=== PATIENT | female | born 1960 | race Caucasian/White ===

== ENCOUNTER 2016-11-21 08:24 | Emergency (ER) | payer OTHER ==
[2016-11-21 08:36] VITALS: BMI 25.6
[2016-11-21 09:02] VITALS: BP 151/91; PULSE 92; TEMP 98.5
[2016-11-21 09:11] LABS: MCH 33.5 pg (25.7-33.7); MCHC 34.2 g/dl (32.0-36.0); MEAN CELL VOLUME 97.8 fl (80-96); MEAN PLT VOLUME 8.7 fl (7.5-11.1); PLATELET COUNT 245 K/MM3 (134-434); RDW 13.3 % (11.6-15.6); WHITE BLOOD COUNT 7.2 K/mm3 (4.0-10.0)
--- NOTE | 2016-11-21 09:11 | PDOC ---
History of Present Illness - General Chief Complaint: Respiratory Stated Complaint: CHEST PAIN S/P Time Seen by Provider: 11/21/16 08:27 - History of Present Illness Initial Comments: 11/21/16 09:06 56-year-old female with a past medical history GERD, anxiety, sleep apnea, and COPD (mild) She has a [id number] smoking history States that towards the end of October, she got the flu, (despite having the flu shot), and was sick for about a week The rest of her family was also ill at the same time, and her daughter got "walking pneumonia" She states that she did get better, However Friday morning, 4 days ago, she again developed flulike symptoms, associated with an occasional cough, and some trace sputum She also developed the onset of constant chest pain, which she describes as right periscapular pain occasionally coming around to her chest, which is worse with cough, and deep inspiration She describes the pain as constant since Friday She states that she feels slightly short of breath intermittently She denies any midsternal chest pain or substernal chest heaviness, neck jaw or arm radiation, or palpitations She denies any leg swelling She denies any estrogen supplementation She denies any palpitations She denies any recent travel She denies any leg swelling She denies any history of DVT or PE She states that she is having diffuse myalgias, and some mild nausea, but she denies any vomiting or diarrhea She denies any urinary symptoms Remainder of the review of systems is negative Past History - Past Medical History Allergies/Adverse Reactions: Allergies Allergy/AdvReac Type Severity Reaction Status Date / Time No Known Drug Allergies Allergy Verified 11/21/16 08:28 Home Medications: Ambulatory Orders Alprazolam [Xanax] 0.5 mg PO BID 01/31/12 Omeprazole 20 mg PO DAILY 01/31/12 Valsartan [Diovan] 80 mg PO DAILY 01/31/12 Anemia: No Asthma: No Cancer: No Cardiac Disorders: No CVA: No COPD: No CHF: No Dementia: No Diabetes: No GI Disorders: Yes (GERD) Disorders: No HTN: Yes Hypercholesterolemia: Yes (CURRENTLY NOT ON LIPITOR) Liver Disease: No Psychiatric Problems: (ANXIETY) Seizures: No Thyroid Disease: No - Surgical History Abdominal Surgery: No Appendectomy: No Cardiac Surgery: No Cholecystectomy: No Lung Surgery: No Neurologic Surgery: No Orthopedic Surgery: No - Psycho/Social/Smoking Cessation Hx Anxiety: Yes Suicidal Ideation: No Smoking Status: No Smoking History: Current every day smoker Have you smoked in the past 12 months: Yes Number of Cigarettes Smoked Daily: 20 Information on smoking cessation initiated: No 'Breaking Loose' booklet given: 02/14/16 Hx Alcohol Use: Yes Drug/Substance Use Hx: No Substance Use Type: Alcohol Hx Substance Use Treatment: No Review of Systems - Review of Systems Able to Perform ROS?: Yes Comments:: 11/21/16 09:09 12 point review of systems is as per history of present illness and otherwise negative *Physical Exam - Vital Signs Last Vital Signs Temp Pulse Resp BP Pulse Ox 98.5 F 92 H 20 151/91 100 11/21/16 08:29 11/21/16 08:29 11/21/16 08:29 11/21/16 08:29 11/21/16 08:29 - Physical Exam Comments: 11/21/16 09:10 Physical exam Last Vital Signs Temp Pulse Resp BP Pulse Ox 98.5 F 92 H 20 151/91 100 11/21/16 08:29 11/21/16 08:29 11/21/16 08:29 11/21/16 08:29 11/21/16 08:29 GENERAL: The patient is awake, alert, and fully oriented, and in no apparent distress. HEAD: Normal with no signs of trauma. EYES: Sclera anicteric, conjunctiva normal ENT: Moist mucous membranes. NECK: Normal range of motion, supple LUNGS: Breath sounds equal, clear to auscultation bilaterally. No wheezes, and no crackles. Very occasional mild rhonchi, which clears with cough HEART: Regular rate and rhythm, normal S1 and S2 without murmur, rub or gallop. ABDOMEN: Soft, nontender, normoactive bowel sounds. No guarding, no rebound. No masses appreciated. EXTREMITIES: Normal range of motion, no edema. No clubbing or cyanosis. No cords, erythema, or tenderness. NEUROLOGICAL: Cranial nerves II through XII grossly intact. Normal speech, normal gait. PSYCH: Normal mood, normal affect. SKIN: Warm, Dry, normal turgor, no rashes or lesions noted. ED Treatment Course - LABORATORY CBC & Chemistry Diagram: 11/21/16 08:50 11/21/16 08:50 - RADIOLOGY Radiology Studies Ordered: Category Date Time Status CHEST PA & LAT [RAD] Stat Radiology 11/21/16 08:38 Ordered Medical Decision Making - Medical Decision Making 11/21/16 09:13 EKG Normal sinus rhythm 99, normal axis Normal AV and IV conduction time Normal QTC There is poor R wave progression across the anterior precordium There is no old EKG available for comparison 11/21/16 11:29 Laboratory Results - last 24 hr 11/21/16 11/21/16 11/21/16 08:50 08:50 08:50 WBC 7.2 RBC 4.27 Hgb 14.3 Hct 41.8 MCV 97.8 H MCHC 34.2 RDW 13.3 Plt Count 245 MPV 8.7 D-Dimer Cancelled Sodium 136 Potassium 4.3 Chloride 99 Carbon Dioxide 22 Anion Gap 15 BUN 13 Creatinine 0.7 Creat Clearance w eGFR > 60 Random Glucose 98 Lactic Acid Calcium 9.5 Magnesium 1.8 Total Bilirubin 0.8 AST 24 ALT 25 Alkaline Phosphatase 62 Creatine Kinase Troponin I B-Natriuretic Peptide 72.26 Total Protein 6.9 Albumin 4.4 11/21/16 11/21/16 11/21/16 08:50 08:50 10:00 WBC RBC Hgb Hct MCV MCHC RDW Plt Count MPV D-Dimer Sodium Potassium Chloride Carbon Dioxide Anion Gap BUN Creatinine Creat Clearance w eGFR Random Glucose Lactic Acid 0.770 Calcium Magnesium Total Bilirubin AST ALT Alkaline Phosphatase Creatine Kinase Cancelled 56 Troponin I Cancelled < 0.03 L B-Natriuretic Peptide Total Protein Albumin 11/21/16 11:32 CXR PA and lat - negative Patient refused to wait any longer for d-dimer results (was re-drawn and pending ), or second set of cardiac enzymes and monitoring as per protocol Explained to the patient that we still have not ruled out a cardiac cause, or pulmonary embolism Patient absolutely refuses to stay any longer and wanted to sign out AGAINST MEDICAL ADVICE Patient has decided to leave AMA The patient had a normal mental status examination, and understands his/her condition, and the risk of leaving (include specific details), including permanent disability and/or . The patient has had an opportunity to ask questions about his/her medical condition. The patient has been informed that he/she may return for care at any time, and has been referred to his/her own physician Addendum - D dimer <200 after pt signed out AMA Pt left AMA before 6 hour 2nd troponin and monitored observation could be done *DC/Admit/Observation/Transfer Diagnosis at time of Disposition: Atypical chest pain, Influenza-like illness - Discharge Dispostion Disposition: AGAINST MEDICAL ADVICE Condition at time of disposition: Fair
[2016-11-21 10:23] LABS: ALBUMIN 4.4 g/dl (3.5-5.0); ALK PHOS 62 U/L (32-92); ANION GAP 15 (8-16); BILIRUBIN,TOTAL 0.8 mg/dl (0.2-1.0); CALCIUM 9.5 mg/dl (8.4-10.2); CO2 22 mmol/L (22-28); CREATININE 0.7 mg/dl (0.6-1.3); GLUCOSE,RANDOM 98 mg/dl (74-106); MAGNESIUM 1.8 mg/dL (1.8-2.4); SGOT/AST 24 U/L (10-42); SGPT/ALT 25 U/L (10-40); TOT PROT 6.9 g/dl (6.4-8.3)
[2016-11-21 10:51] LABS: TROPONIN I (DFP) < 0.03 ng/ml (0.03-0.50)
[2016-11-21 11:19] LABS: CPK(DFH) 56 IU/L (26-140)
--- NOTE | 2016-11-22 09:49 | EKG ---
Test Reason : Blood Pressure : / mmHG Vent. Rate : 099 BPM Atrial Rate : 099 BPM P-R Int : 130 ms QRS Dur : 070 ms QT Int : 350 ms P-R-T Axes : 065 028 033 degrees QTc Int : 449 ms NORMAL SINUS RHYTHM CANNOT RULE OUT ANTERIOR INFARCT , AGE UNDETERMINED ABNORMAL ECG NO PREVIOUS ECGS AVAILABLE Confirmed by KAYLA LAGUERRE MD ([id number]) on 11/22/2016 9:48:48 AM Referred By: BHAVESH Confirmed By:KAYLA LAGUERRE MD
== END 2016-11-21 11:30 | disposition left against medical advice (07) ==
LOC: FER 08:24
DX: J11.1 Influenza due to unidentified influenza virus with other respiratory manifestations (principal); R07.89 Other chest pain; K21.9 Gastro-esophageal reflux disease without esophagitis; J44.9 Chronic obstructive pulmonary disease, unspecified; F41.9 Anxiety disorder, unspecified; G47.30 Sleep apnea, unspecified
CPT/HCPCS: 36415; 71020-TC; 80053; 82550; 83605; 83735; 83880; 84484; 85027; 85379; 87040; 87804; 93005; 99282-25

== ENCOUNTER 2018-01-03 15:00 | Emergency (ER) | payer OTHER ==
[2018-01-03 15:25] VITALS: TEMP 99; BMI 29.6
[2018-01-03] MEDS ORDERED: SODIUM CHLORIDE 1,000 ML IV STA (15:26)
[2018-01-03 15:37] LABS: BASO % 0.4 % (0-2.0); EOS % 0.3 % (0-4.5); HEMATOCRIT 44.7 % (32.4-45.2); LYMPH % 16.7 % (8-40); MCH 33.7 pg (25.7-33.7); MCHC 33.5 g/dl (32.0-36.0); MEAN CELL VOLUME 100.6 fl (80-96); MEAN PLT VOLUME 8.6 fl (7.5-11.1); MONO % 4.8 % (3.8-10.2); NEUT % 77.8 % (42.8-82.8); PLATELET COUNT 201 K/MM3 (134-434); RBC 4.44 M/mm3 (3.60-5.2); RDW 13.2 % (11.6-15.6); WHITE BLOOD COUNT 6.1 K/mm3 (4.0-10.8)
[2018-01-03] MEDS ORDERED: LORazepam 2 MG/ML SDV VIAL ONE (15:39)
[2018-01-03 15:46] LABS: PH,URINE 6.5 (4.5-8); URINE APPEARANCE Clear; URINE BILIRUBIN Negative (NEGATIVE); URINE GLUCOSE (UA) Negative (NEGATIVE); URINE KETONE 2+ (NEGATIVE); URINE LEUK ESTERASE Negative (NEGATIVE); URINE NITRITE Negative (NEGATIVE); URINE PROTEIN Negative (NEGATIVE); URINE UROBILINOGEN 0.2 (0.2-1.0)
[2018-01-03 15:53] LABS: URINE BLOOD 1+ (NEGATIVE); URINE COLOR AMBER
[2018-01-03 16:07] VITALS: PULSE 80
--- NOTE | 2018-01-03 16:26 | PDOC ---
History of Present Illness - General History Source: Patient Exam Limitations: No Limitations - History of Present Illness Initial Comments: 01/03/18 17:14 The patient is a 57 year old female with past medical history of GERD, anxiety, sleep apnea, COPD presents with multiple complaints. Patient reports several months of having multiple symptoms including fatigue, insomnia, anxiety, intermittent weakness, dehydration, abdominal pain, chest pain, shortness of breath, hematuria, and joint pains. The patient reports that she has a positive pending review of systems. She is quite anxious and reports that life is too much and that with the stressors of her job, her boss and her family that she feels anxious. Patient is requesting IV fluids for dehydration. The patient denies any other complaints. <Sera Hernandez - Last Filed: 01/03/18 17:14> - General History Source: Patient Exam Limitations: No Limitations <Tristen Chiu - Last Filed: 01/12/18 08:32> - General Chief Complaint: Headache Stated Complaint: MULTIPLE COMPLAINTS HIGH ANXIETY Time Seen by Provider: 01/03/18 15:15 Past History <Sera Hernandez - Last Filed: 01/03/18 17:14> - Past Medical History Anemia: No Asthma: No Cancer: No Cardiac Disorders: No CVA: No COPD: Yes (EMPHYSEMA) CHF: No DVT: No Dementia: No Diabetes: No GI Disorders: Yes (GERD) Disorders: No HTN: Yes Hypercholesterolemia: Yes (CURRENTLY NOT ON LIPITOR) Liver Disease: No Psychiatric Problems: (ANXIETY) Seizures: No Thyroid Disease: No Other medical history: SLEEP APNEA, ENLARGED LIVER DEGENERATIVE DISC DISEASE IN NECK - Surgical History Abdominal Surgery: No Appendectomy: No Cardiac Surgery: No Cholecystectomy: No Lung Surgery: No Neurologic Surgery: No Orthopedic Surgery: No - Suicide/Smoking/Psychosocial Hx Smoking Status: No Smoking History: Current every day smoker Have you smoked in the past 12 months: Yes Number of Cigarettes Smoked Daily: 20 Information on smoking cessation initiated: Yes 'Breaking Loose' booklet given: 01/03/18 Hx Alcohol Use: Yes (DAILY WINE ANDS VODKA) Drug/Substance Use Hx: Yes (MARIJUANA) Substance Use Type: Alcohol Hx Substance Use Treatment: No <Tristen Chiu - Last Filed: 01/12/18 08:32> - Past Medical History Allergies/Adverse Reactions: Allergies Allergy/AdvReac Type Severity Reaction Status Date / Time No Known Drug Allergies Allergy Verified 11/21/16 08:28 Home Medications: Ambulatory Orders Alprazolam [Xanax] 1 mg PO TID 01/31/12 Omeprazole 40 mg PO DAILY 01/31/12 Valsartan [Diovan] 80 mg PO DAILY 01/31/12 Review of Systems - Review of Systems Able to Perform ROS?: Yes Comments:: 01/03/18 17:14 GENERAL/CONSTITUTIONAL: (+) anxious. No fever or chills. No weakness. HEAD, EYES, EARS, NOSE AND THROAT: No change in vision. No ear pain or discharge. No sore throat. CARDIOVASCULAR: No chest pain or shortness of breath. RESPIRATORY: No cough, wheezing, or hemoptysis. GASTROINTESTINAL: No nausea, vomiting, diarrhea or constipation. GENITOURINARY: No dysuria, frequency, or change in urination. MUSCULOSKELETAL: No joint or muscle swelling or pain. No neck or back pain. SKIN: No rash NEUROLOGIC: No headache, vertigo, loss of consciousness, or change in strength/ sensation. ENDOCRINE: No increased thirst. No abnormal weight change. HEMATOLOGIC/LYMPHATIC: No anemia, easy bleeding, or history of blood clots. ALLERGIC/IMMUNOLOGIC: No hives or skin allergy. <Sera Hernandez - Last Filed: 01/03/18 17:14> *Physical Exam - Vital Signs Last Vital Signs Temp Pulse Resp BP Pulse Ox 99 F 80 16 154/85 100 01/03/18 15:03 01/03/18 16:37 01/03/18 16:37 01/03/18 16:37 01/03/18 16:37 - Physical Exam Comments: 01/03/18 17:14 GENERAL:(+) Anxious. Awake, alert, and fully oriented. HEAD: No signs of trauma EYES: PERRLA, EOMI, sclera anicteric, conjunctiva clear ENT: Auricles normal inspection, hearing grossly normal. NECK: Normal ROM. LUNGS: Breath sounds equal, clear to auscultation bilaterally. No wheezes, and no crackles HEART: Regular rate and rhythm, normal S1 and S2, no murmurs, rubs or gallops ABDOMEN: Soft, nontender EXTREMITIES: Normal range of motion, no edema. No clubbing or cyanosis. No cords, erythema, or tenderness NEUROLOGICAL: Cranial nerves II through XII grossly intact. Normal speech, normal gait SKIN: Warm, Dry, normal turgor, no rashes or lesions noted. <Sera Hernandez - Last Filed: 01/03/18 17:14> - Vital Signs Last Vital Signs Temp Pulse Resp BP Pulse Ox 99 F 80 20 155/95 98 01/03/18 15:03 01/03/18 16:05 01/03/18 16:05 01/03/18 16:05 01/03/18 16:05 <Tristen Chiu - Last Filed: 01/12/18 08:32> Heart Score/ECG Review #1 ECG reviewed & interpreted by me at: 15:25 01/03/18 16:17 NSR 83, Q wave V1-V2, no std/adela, TWI III, normal axis, normal intervals, QTC 444 msec <Tristen Chiu - Last Filed: 01/12/18 08:32> ED Treatment Course - LABORATORY CBC & Chemistry Diagram: 01/03/18 15:33 01/03/18 15:33 - ADDITIONAL ORDERS Additional order review: Laboratory Results 01/03/18 01/03/18 01/03/18 15:40 15:33 15:33 Sodium 134 L Potassium 3.5 Chloride 98 Carbon Dioxide 24 Anion Gap 12 BUN 9 D Creatinine < 0.8 Creat Clearance w eGFR > 60 Random Glucose 130 H D Calcium 9.2 Total Bilirubin 1.2 H D AST 46 H D ALT 47 H D Alkaline Phosphatase 64 Troponin I < 0.03 Total Protein 7.1 Albumin 4.3 Urine Color Melanie Urine Appearance Clear Urine pH 6.5 Ur Specific [place] 1.010 Urine Protein Negative Urine Glucose (UA) Negative Urine Ketones 2+ H Urine Blood 1+ H Urine Nitrite Negative Urine Bilirubin Negative Urine Urobilinogen 0.2 Ur Leukocyte Esterase Negative Urine RBC 2-5 Urine WBC 0-2 Ur Epithelial Cells Few Urine Bacteria Few 01/03/18 15:33 RBC 4.44 MCV 100.6 H MCHC 33.5 RDW 13.2 MPV 8.6 Neutrophils % 77.8 Lymphocytes % 16.7 Monocytes % 4.8 Eosinophils % 0.3 Basophils % 0.4 - Medications Given in the ED: ED Medications Discontinued Medications Generic Name Dose Route Start Last Admin Trade Name Freq PRN Reason Stop Dose Admin Acetaminophen 1,000 mg 01/03/18 16:29 01/03/18 16:41 Ofirmev Injection - IVPB 01/03/18 16:30 1,000 mg ONCE ONE Administration Sodium Chloride 1,000 mls @ 1,000 mls/hr 01/03/18 15:26 01/03/18 15:42 Normal Saline - IV 01/03/18 16:25 1,000 mls/hr ASDIR STA Administration Lorazepam 2 mg 01/03/18 15:26 01/03/18 15:53 Ativan Injection - IVPUSH 01/03/18 15:27 2 mg ONCE ONE Administration <Sera Hernandez - Last Filed: 01/03/18 17:14> - LABORATORY CBC & Chemistry Diagram: 01/03/18 15:33 01/03/18 15:33 - ADDITIONAL ORDERS Additional order review: Laboratory Results 01/03/18 15:40 Urine Color Melanie Urine Appearance Clear Urine pH 6.5 Ur Specific [place] 1.010 Urine Protein Negative Urine Glucose (UA) Negative Urine Ketones 2+ H Urine Blood 1+ H Urine Nitrite Negative Urine Bilirubin Negative Urine Urobilinogen 0.2 Ur Leukocyte Esterase Negative 01/03/18 15:33 RBC 4.44 MCV 100.6 H MCHC 33.5 RDW 13.2 MPV 8.6 Neutrophils % 77.8 Lymphocytes % 16.7 Monocytes % 4.8 Eosinophils % 0.3 Basophils % 0.4 - RADIOLOGY Radiology Studies Ordered: Category Date Time Status CHEST X-RAY PORTABLE* [RAD] Stat Radiology 01/03/18 15:26 Taken - Medications Given in the ED: ED Medications Discontinued Medications Generic Name Dose Route Start Last Admin Trade Name Freq PRN Reason Stop Dose Admin Lorazepam 2 mg 01/03/18 15:26 01/03/18 15:53 Ativan Injection - IVPUSH 01/03/18 15:27 2 mg ONCE ONE Administration <Tristen Chiu - Last Filed: 01/12/18 08:32> Medical Decision Making - Medical Decision Making 01/03/18 17:02 A portion of this note was documented by scribe services under my direction. I have reviewed the details of the note, within reason, and agree with the documentation with the following case summary and management plan written by me. Patient treated in the ED. Nursing notes are reviewed and incorporated into the medical decision-making. Vital signs reviewed. Peripheral IV access obtained by the nurse, laboratory studies are drawn and sent, reviewed and interpreted by myself. Vital Signs Temp Pulse Resp BP Pulse Ox 99 F 80 16 154/85 100 01/03/18 15:03 01/03/18 16:37 01/03/18 16:37 01/03/18 16:37 01/03/18 16:37 57 year old female with past medical history of GERD, anxiety, sleep apnea, COPD presents with multiple complaints. Patient reports for several months of having multiple symptoms including fatigue, insomnia, anxiety, intermittent weakness, dehydration, abdominal pain, chest pain, shortness of breath, hematuria, joint pains. Patient reports that she has a positive pending review of systems. She is quite anxious and reports that life is too much and that with the stressors of her job, her boss and her family that she feels anxious. Patient is requesting IV fluids for dehydration. The patient appears to be having a panic attack. The patient was given 2 mg IV Ativan with significant improvement of symptoms and the patient reports relief. I obtained blood work including a chest x-ray and EKG. There does not appear to be in acute findings. I suspect the patient most likely had a panic attack. She may have had some dehydration component as well. The patient is concerned that she may have fibromyalgia or chronic fatigue syndrome. I advised patient that she would benefit from discussing these things with her primary care physician. Regarding the hematuria, I advised the patient that she may benefit from a cystoscopy given the persistence of the symptoms. The patient states that she' ll make a follow-up with urologist and see the patient. The patient will call home with her partner. The patient is satisfied with the care and plan to go home. I discussed the physical exam findings, ancillary test results and final diagnoses with the patient. I answered all of the patient's questions. The patient was satisfied with the care received and felt comfortable with the discharge plan and treatment plan. The patient will call their primary care physician within 24 hours to arrange follow-up and will return to the Emergency Department with any new, persistant or worsening symptoms. <Tristen Chiu - Last Filed: 01/12/18 08:32> *DC/Admit/Observation/Transfer - Attestations Scribe Attestion: 01/03/18 17:15 Documentation prepared by Sera Hernandez, acting as medical coding auditor for Tristen Chiu MD. <Sera Hernandez - Last Filed: 01/03/18 17:14> - Discharge Dispostion Admit: No <Tristen Chiu - Last Filed: 01/12/18 08:32> Diagnosis at time of Disposition: Anxiety, Weakness, Dehydration - Discharge Dispostion Disposition: HOME Condition at time of disposition: Improved - Referrals Referrals: Hayden Ag MD [Staff Physician] - - Patient Instructions Printed Discharge Instructions: DI for Dehydration -- Adult, DI for Anxiety -- Adult Additional Instructions: Please take the results of your workup and bring it to your doctor. If you have been having problems with blood in your urine, you may benefit from a cystoscopy from an urologist. Please call to schedule an appointment. Drink plenty of fluids and rest.
[2018-01-03 16:28] LABS: ALBUMIN 4.3 g/dl (3.5-5.0); ALK PHOS 64 U/L (32-92); ANION GAP 12 (8-16); BILIRUBIN,TOTAL 1.2 mg/dl (0.2-1.0); BLOOD UREA NITROGEN 9 mg/dl (7-18); CALCIUM 9.2 mg/dl (8.4-10.2); CHLORIDE 98 mmol/L (98-107); CO2 24 mmol/L (22-28); GLUCOSE,RANDOM 130 mg/dl (74-106); POTASSIUM 3.5 mmol/L (3.5-5.1); SGOT/AST 46 U/L (10-42); SGPT/ALT 47 U/L (10-40); SODIUM 134 mmol/L (136-145); TOT PROT 7.1 g/dl (6.4-8.3)
[2018-01-03] MEDS ORDERED: ACETAMINOPHEN 1000 MG/100 ML VIAL (NON FORMULARY) IVPB ONE (16:29)
[2018-01-03 16:34] LABS: EPI CELLS FEW /HPF; URINE BACTERIA FEW /hpf (NEGATIVE); URINE WBC 0-2 (0-5)
[2018-01-03 16:38] VITALS: BP 154/85
[2018-01-03] MEDS ORDERED: ACETAMINOPHEN INJECTION 100 ML IVPB ONE (16:38)
[2018-01-03 16:40] LABS: CREATININE < 0.8 mg/dl (0.6-1.3)
--- NOTE | 2018-01-04 10:46 | EKG ---
Test Reason : Blood Pressure : / mmHG Vent. Rate : 083 BPM Atrial Rate : 083 BPM P-R Int : 150 ms QRS Dur : 080 ms QT Int : 378 ms P-R-T Axes : 055 004 019 degrees QTc Int : 444 ms NORMAL SINUS RHYTHM SEPTAL INFARCT (CITED ON OR BEFORE 21-NOV-2016) CANNOT RULE OUT INFERIOR INFARCT , AGE UNDETERMINED ABNORMAL ECG WHEN COMPARED WITH ECG OF 21-NOV-2016 09:08, NO SIGNIFICANT CHANGE WAS FOUND Confirmed by ZHANE KAT MD ([id number]) on 01/04/2018 10:46:08 AM Referred By: RADHA MCKEON Confirmed By:ZHANE KAT MD
== END 2018-01-03 17:12 | disposition home or self-care (01) ==
LOC: FER 15:00
PROC: 3E033GC Introduction of Other Therapeutic Substance into Peripheral Vein, Percutaneous Approach (ICD-10-PCS; principal; 2018-01-03)
PROC: 3E0337Z Introduction of Electrolytic and Water Balance Substance into Peripheral Vein, Percutaneous Approach (ICD-10-PCS; 2018-01-03)
DX: F41.9 Anxiety disorder, unspecified (principal); R53.1 Weakness; E86.0 Dehydration; I10 Essential (primary) hypertension; E78.00 Pure hypercholesterolemia, unspecified; K21.9 Gastro-esophageal reflux disease without esophagitis; G47.30 Sleep apnea, unspecified; J43.9 Emphysema, unspecified; R16.0 Hepatomegaly, not elsewhere classified
CPT/HCPCS: 36415; 71045-TC-FY; 80053; 81003; 81015; 84484; 85025; 93005; 99284-25; J0131; J7030

== ENCOUNTER 2019-06-24 08:09 | Emergency (ER) | payer OTHER ==
[2019-06-24 08:31] VITALS: TEMP 98.3; BMI 30.4
[2019-06-24] MEDS ORDERED: SODIUM CHLORIDE 1,000 ML IV STA (09:02)
--- NOTE | 2019-06-24 09:26 | PDOC ---
History of Present Illness - General Chief Complaint: Weakness Stated Complaint: DEHYDRATION Time Seen by Provider: 06/24/19 08:12 - History of Present Illness Initial Comments: 06/24/19 09:23 59 F with h/o GERD, anxiety, sleep apnea, COPD, presenting to ED with multiple complaints. Pt states that she feels dehydrated because she doesn't drink enough water. Pt feels weak. Also complains of months of insomnia and "chronic fatigue". She endorses diarrhea but no vomiting. No abdominal pain. No CP/SOB. No F/C. Past History - Past Medical History Allergies/Adverse Reactions: Allergies Allergy/AdvReac Type Severity Reaction Status Date / Time No Known Drug Allergies Allergy Verified 11/21/16 08:28 Home Medications: Ambulatory Orders Alprazolam [Xanax] 1 mg PO TID 01/31/12 Omeprazole 40 mg PO DAILY 01/31/12 Valsartan [Diovan] 80 mg PO DAILY 01/31/12 Anemia: No Asthma: No Cancer: No Cardiac Disorders: No CVA: No COPD: Yes (EMPHYSEMA) CHF: No DVT: No Dementia: No Diabetes: No GI Disorders: Yes (GERD) Disorders: No HTN: Yes Hypercholesterolemia: Yes Liver Disease: No Psychiatric Problems: (ANXIETY) Seizures: No Thyroid Disease: No - Surgical History Abdominal Surgery: No Appendectomy: No Cardiac Surgery: No Cholecystectomy: No Lung Surgery: No Neurologic Surgery: No Orthopedic Surgery: No - Psycho Social/Smoking Cessation Hx Smoking Status: No Smoking History: Current every day smoker Have you smoked in the past 12 months: Yes Number of Cigarettes Smoked Daily: 20 Information on smoking cessation initiated: Yes 'Breaking Loose' booklet given: 01/03/18 Hx Alcohol Use: Yes (4 GLASSES PER DAY) Drug/Substance Use Hx: No Substance Use Type: Alcohol Hx Substance Use Treatment: No Review of Systems - Review of Systems Comments:: 06/24/19 09:24 GENERAL/CONSTITUTIONAL: No fever or chills. + weakness. HEAD, EYES, EARS, NOSE AND THROAT: No change in vision. No ear pain or discharge. No sore throat. CARDIOVASCULAR: No chest pain, no shortness of breath, no loss of consciousness RESPIRATORY: No cough, wheezing, or hemoptysis. GASTROINTESTINAL: + diarrhea, No nausea, vomiting, or constipation. GENITOURINARY: No dysuria, frequency, or change in urination. MUSCULOSKELETAL: No joint or muscle swelling or pain. No neck or back pain. SKIN: No rash NEUROLOGIC: No vertigo, no change in strength/sensation. ENDOCRINE: No increased thirst. No abnormal weight change. HEMATOLOGIC/LYMPHATIC: No anemia, easy bleeding, or history of blood clots. ALLERGIC/IMMUNOLOGIC: No hives or skin allergy. *Physical Exam - Vital Signs Last Vital Signs Temp Pulse Resp BP Pulse Ox 98.3 F 113 H 24 H 162/99 100 06/24/19 08:10 06/24/19 08:10 06/24/19 08:10 06/24/19 08:10 06/24/19 08:10 - Physical Exam Comments: 06/24/19 09:25 "GENERAL: Awake, alert, and fully oriented, in no acute distress. HEAD: No signs of trauma EYES: PERRLA, EOMI, sclera anicteric, conjunctiva clear ENT: Auricles normal inspection, hearing grossly normal, nares patent, oropharynx clear without exudates. Moist mucosa NECK: Nontender, no stepoffs, Normal ROM, supple, no lymphadenopathy, JVD, or masses LUNGS: Breath sounds equal, clear to auscultation bilaterally. No wheezes, and no crackles HEART: Regular rate and rhythm, normal S1 and S2, no murmurs, rubs or gallops ABDOMEN: Soft, nontender, normoactive bowel sounds. No guarding, no rebound. No masses EXTREMITIES: Normal range of motion, no edema. No clubbing or cyanosis. No cords, erythema, or tenderness NEUROLOGICAL: Cranial nerves II through XII intact. 5/5 strength and sensation in all extremities, Normal speech, normal gait, normal cerebellar function SKIN: Warm, Dry, normal turgor, no rashes or lesions noted. ED Treatment Course - LABORATORY CBC & Chemistry Diagram: 06/24/19 09:27 06/24/19 09:51 Medical Decision Making - Medical Decision Making 06/24/19 09:25 59 F with generalized malaise, diarrhea, and possible dehydration. - Labs - IVF - Reassess 06/24/19 12:07 Labs wnl Pt reassessed - feels much better after fluids Pt's BP elevated. Pt denies CP/SOB. Will f/u with PMD for further management. Pt is well appearing, with normal vitals. Clinically stable for DC at this time. I discussed the physical exam findings, ancillary test results and final diagnoses with the patient. I answered all of the patient's questions. The patient was satisfied with the care received and felt comfortable with the discharge plan and treatment plan. The patient agrees to follow up with the primary care physician within 24-72 hours. Discharge - Discharge Information Problems reviewed: Yes Clinical Impression/Diagnosis: Anxiety, Weakness, Dehydration Disposition: HOME - Follow up/Referral - Patient Discharge Instructions Patient Printed Discharge Instructions: DI for Dehydration -- Adult Additional Instructions: Drink plenty of fluids to stay hydrated. Refrain from excessive alcohol use. If you experience any chest pain, shortness of breath, abdominal pain, or any other concerning symptoms, return to the ER immediately. Otherwise, follow up with your primary doctor within 1 week. You also need to have your blood pressure re-checked by your primary doctor, as it was slightly elevated today. Uncontrolled blood pressure can eventually lead to kidney disease, heart disease, other serious illness, disability, or even . - Post Discharge Activity
[2019-06-24 09:33] LABS: BASO % 0.7 % (0-2.0); EOS % 0.2 % (0-4.5); HEMATOCRIT 44.3 % (32.4-45.2); HEMOGLOBIN 14.8 GM/dl (10.7-15.3); MCH 34.6 pg (25.7-33.7); MCHC 33.4 g/dl (32.0-36.0); MEAN CELL VOLUME 103.5 fl (80-96); MEAN PLT VOLUME 8.2 fl (7.5-11.1); MONO % 4.7 % (3.8-10.2); NEUT % 86.4 % (42.8-82.8); PLATELET COUNT 206 K/MM3 (134-434); RBC 4.28 M/mm3 (3.60-5.2); RDW 12.7 % (11.6-15.6); WHITE BLOOD COUNT 10.2 K/mm3 (4.0-10.8)
[2019-06-24 12:00] LABS: ALBUMIN 4.1 g/dl (3.4-5.0); BILIRUBIN,TOTAL 0.8 mg/dL (0.2-1); BLOOD UREA NITROGEN 9.6 mg/dL (7-18); CALCIUM 9.4 mg/dL (8.5-10.1); CREATININE 0.7 mg/dL (0.55-1.3); POTASSIUM 3.5 mmol/L (3.5-5.1); TOT PROT 6.9 g/dl (6.4-8.2)
[2019-06-24 12:18] VITALS: BP 160/101; PULSE 68
== END 2019-06-24 12:20 | disposition home or self-care (01) ==
LOC: FER 08:09
PROC: 3E0337Z Introduction of Electrolytic and Water Balance Substance into Peripheral Vein, Percutaneous Approach (ICD-10-PCS; principal; 2019-06-24)
DX: F41.9 Anxiety disorder, unspecified (principal); E86.0 Dehydration; R53.1 Weakness; F17.210 Nicotine dependence, cigarettes, uncomplicated; J44.9 Chronic obstructive pulmonary disease, unspecified; K21.9 Gastro-esophageal reflux disease without esophagitis
CPT/HCPCS: 36415; 80053; 85025; 99283-25; J7030

== ENCOUNTER 2021-06-11 16:19 | Emergency (ER) | payer OTHER ==
[2021-06-11 16:37] VITALS: BMI 29.2
[2021-06-11] MEDS ORDERED: HALOPERIDOL LACTATE 5 MG/ML IM ONE (17:24)
[2021-06-11] MEDS ORDERED: HALOPERIDOL LACTATE 5 MG/ML ONE (17:34)
[2021-06-11 17:51] VITALS: BP 142/89; TEMP 98.2
[2021-06-11] MEDS ORDERED: LORazepam 2 MG/ML SDV VIAL IVPUSH ONE (18:14)
[2021-06-11] MEDS ORDERED: LORazepam 2 MG/ML SDV VIAL ONE (18:18)
[2021-06-11 19:02] LABS: BASO % 0.2 % (0-2.0); EOS % 0.1 % (0-4.5); HEMATOCRIT 43.8 % (32.4-45.2); HEMOGLOBIN 15.3 GM/dL (10.7-15.3); LYMPH % 6.6 % (8-40); MCH 36.1 pg (25.7-33.7); MCHC 34.8 g/dl (32.0-36.0); MEAN CELL VOLUME 103.5 fl (80-96); MEAN PLT VOLUME 7.7 fl (7.5-11.1); MONO % 6.1 % (3.8-10.2); PLATELET COUNT 154 10^3/uL (134-434); RBC 4.23 M/mm3 (3.60-5.2); RDW 13.5 % (11.6-15.6); WHITE BLOOD COUNT 8.6 K/mm3 (4.0-10.0)
[2021-06-11 19:20] LABS: CHLORIDE 92 mmol/L (98-107); SODIUM 129 mmol/L (136-145)
[2021-06-11 19:22] LABS: ANION GAP 18 MMOL/L (8-16); BLOOD UREA NITROGEN 5.3 mg/dL (7-18); CALCIUM 8.8 mg/dL (8.5-10.1); CO2 19 mmol/L (21-32); GLUCOSE,RANDOM 71 mg/dL (74-106)
[2021-06-11 19:23] LABS: ALBUMIN 3.8 g/dl (3.4-5.0)
[2021-06-11 19:25] LABS: CREATININE 0.5 mg/dL (0.55-1.3); SGPT/ALT 62 U/L (13-61)
[2021-06-11 19:26] LABS: SGOT/AST 54 U/L (15-37)
[2021-06-11 19:27] LABS: BILIRUBIN,TOTAL 0.6 mg/dL (0.2-1)
[2021-06-11 19:28] LABS: ALK PHOS 103 U/L (45-117)
[2021-06-11] MEDS ORDERED: SODIUM CHLORIDE 0.9% 500 ML INFUS.BAG IV ONE (21:04)
[2021-06-12 00:02] LABS: CALCIUM 8.5 mg/dL (8.5-10.1)
[2021-06-12 00:03] LABS: BLOOD UREA NITROGEN 4.5 mg/dL (7-18)
[2021-06-12 00:06] LABS: CREATININE 0.4 mg/dL (0.55-1.3)
[2021-06-12 00:38] VITALS: PULSE 79
== END 2021-06-12 00:30 | disposition home or self-care (01) ==
LOC: JER 16:19
PROC: 3E023GC Introduction of Other Therapeutic Substance into Muscle, Percutaneous Approach (ICD-10-PCS; principal; 2021-06-11)
PROC: 3E033NZ Introduction of Analgesics, Hypnotics, Sedatives into Peripheral Vein, Percutaneous Approach (ICD-10-PCS; 2021-06-11)
DX: F10.10 Alcohol abuse, uncomplicated (principal); R07.81 Pleurodynia; W01.0XXA Fall on same level from slipping, tripping and stumbling without subsequent striking against object, initial encounter
CPT/HCPCS: 36415; 70450-TC; 71045-TC-FY; 71250-TC; 72125-TC; 72128-TC; 72131-TC; 74176-TC; 80048; 80053; 82550; 82553; 84484; 85025; 93005; 93010; 99285-25